=== PATIENT | female | born 1950 | race Caucasian/White ===

== ENCOUNTER 2019-09-27 07:35 | Outpatient (CLI) | payer MEDICARE, SELFPAY ==
--- NOTE | ~2019-09-27 | DEXA_ITS ---
Bone Density Report Name: Linnea Hernandez Age: 69 Sex: Female Ethnicity: White Date of : 1950 Indication: postmenopausal; Referring Provider: Axel Patton Study: Bone densitometry was performed. Exam Date: September 27, 2019 Accession number: [id number] Bone Density: Region BMD T-score Z-score Classification AP Spine (L1-L4) 0.918 -1.2 0.8 Osteopenia Femoral Neck (Left) 0.705 -1.3 0.4 Osteopenia Total Hip (Left) 0.912 -0.2 1.2 Normal Total Hip Bilateral Avg 0.906 -0.3 1.2 Normal Femoral Neck (Right) 0.776 -0.7 1.1 Normal Total Hip (Right) 0.900 -0.3 1.1 Normal World Health Organization criteria for BMD impression classify patients as: Normal (T-score at or above -1.0), Osteopenia (T-score between -1.0 and -2.5), or Osteoporosis (T-score at or below -2.5). 10-year Fracture Risk(1): Major Osteoporotic Fracture 9.3% Hip Fracture 1.1% Reported Risk Factors: [place] (), Neck BMD=0.705, BMI=27.1 (1) FRAX(R) Version 3.08. Fracture probability calculated for an untreated patient. Fracture probability may be lower if the patient has received treatment. Previous Exams: Region Exam Age BMD T-score BMD Change BMD Change Date g/cm2 vs Baseline vs Previous AP Spine(L1-L4) 09/27/2019 69 0.918 -1.2 -0.092(-9.1%)# -0.035(-3.7%)* 09/12/2017 67 0.953 -0.9 -0.057(-5.6%)# 0.006(0.6%) 05/29/2014 64 0.948 -0.9 -0.063(-6.2%)# -0.092(-8.9%)# 05/10/2011 61 1.040 -0.1 0.030(3.0%)* 0.028(2.7%)* 04/14/2009 59 1.012 -0.3 0.002(0.2%) 0.002(0.2%) 01/24/2006 56 1.010 -0.3 Total Hip(Left) 09/27/2019 69 0.912 -0.2 -0.001(-0.1%)# -0.023(-2.4%) 09/12/2017 67 0.935 -0.1 0.022(2.4%)# 0.055(6.3%)* 05/29/2014 64 0.880 -0.5 -0.033(-3.6%)# -0.015(-1.6%)# 05/10/2011 61 0.894 -0.4 -0.019(-2.0%) -0.019(-2.1%) 04/14/2009 59 0.914 -0.2 0.001(0.1%) 0.001(0.1%) 01/24/2006 56 0.913 -0.2 Total Hip(Right) 09/27/2019 69 0.900 -0.3 -0.004(-0.5%)# -0.033(-3.6%)* 09/12/2017 67 0.934 -0.1 0.029(3.2%)# 0.020(2.2%) 05/29/2014 64 0.914 -0.2 0.009(1.0%)# 0.006(0.7%)# 05/10/2011 61 0.907 -0.3 0.002(0.3%) -0.023(-2.4%) 04/14/2009 59 0.930 -0.1 0.025(2.8%) 0.025(2.8%) 01/24/2006 56 0.905 -0.3 *Denotes significance at 95% confidence level, LSC for AP Spine = 0.022 g/cm2, LSC for Total Hip = 0.027 g/cm2 Clinical Information Provided by Patient: Has used the following medications
--- NOTE | ~2019-09-27 | MM_ITS ---
EXAMINATION: MM screening [facility] BI w jason HISTORY: Screening mammogram TECHNIQUE: Craniocaudal and mediolateral oblique 3-D tomosynthesis images were obtained and synthetic 2-D images were generated. CAD analysis was submitted and interpreted. COMPARISON: 09/18/2018, 09/12/2017, 08/02/2016, 05/29/2014 BREAST PARENCHYMAL COMPOSITION: There are scattered areas of fibroglandular density. FINDINGS: There is no evidence of suspicious mass, calcification, or architectural distortion to sugg est malignancy in either breast. There has been no suspicious interval change. IMPRESSION: 1. No mammographic evidence of malignancy. 2. Recommend routine screening mammography in one year. BI-RADS Category 1: Negative Reviewed, dictated and finalized at location A. BLANKS CUT OFF SAW OPERATOR
== END 2019-09-27 07:36 | disposition home or self-care (01) ==
PROVIDERS: PCP Family Medicine; Visit Provider Physician Assistant Medical
DX: Z12.31 Encounter for screening mammogram for malignant neoplasm of breast (principal); Z78.0 Asymptomatic menopausal state; M85.88 Other specified disorders of bone density and structure, other site; M85.852 Other specified disorders of bone density and structure, left thigh
CPT/HCPCS: 77063; 77067; 77080

== ENCOUNTER 2020-08-23 08:50 | Outpatient (NON) | payer MEDICARE, SELFPAY ==
[2020-08-23 17:56] LABS: SARS-CoV-2 RNA PCR Negative
== END 2020-08-23 08:51 ==
LOC: ANHCOVIDDT 08:51
PROVIDERS: PCP Family Medicine; Visit Provider Physician Assistant Medical
DX: J02.9 Acute pharyngitis, unspecified (principal); Z20.828 Contact with and (suspected) exposure to other viral communicable diseases
CPT/HCPCS: 87635; C9803; U0003

== ENCOUNTER 2020-10-04 08:49 | Outpatient (CLI) | payer MEDICARE, SELFPAY ==
--- NOTE | ~2020-10-04 | MM_ITS ---
EXAMINATION: MM screening [facility] BI w jason HISTORY: Screening mammogram TECHNIQUE: Craniocaudal and mediolateral oblique 3-D tomosynthesis images were obtained and synthetic 2-D images were generated. CAD analysis was submitted and interpreted. COMPARISON: 09/27/2019, 09/18/2018, 09/12/2017 bilateral digital screening mammogram examinations BREAST PARENCHYMAL COMPOSITION: There are scattered areas of fibroglandular density. FINDINGS: There is no evidence of suspicious mass, calcification, or architectural distortion to sugg est malignancy in either breast. There has been no suspicious interval change. IMPRESSION: 1. No mammographic evidence of malignancy. 2. Recommend routine screening mammography in one year. BI-RADS Category 1: Negative Reviewed, dictated and finalized at location A. BLOCKER
== END 2020-10-04 08:50 | disposition home or self-care (01) ==
LOC: ANHIMG 08:53
PROVIDERS: Family Provider Family Medicine Adolescent Medicine; PCP Family Medicine; Visit Provider Physician Assistant Medical
DX: Z12.31 Encounter for screening mammogram for malignant neoplasm of breast (principal)
CPT/HCPCS: 77063; 77067

== ENCOUNTER 2021-10-30 08:12 | Outpatient (CLI) | payer MEDICARE, SELFPAY ==
--- NOTE | ~2021-10-30 | MM_ITS ---
EXAMINATION: MM screening [facility] BI w jason HISTORY: Screening TECHNIQUE: Craniocaudal and mediolateral oblique 3-D tomosynthesis images were obtained and synthetic 2-D images were generated. CAD analysis was submitted and interpreted. COMPARISON: Comparison to multiple prior studies sequentially, with oldest reviewed study dated 05/24. BREAST PARENCHYMAL COMPOSITION: There are scattered areas of fibroglandular density. FINDINGS: There is no evidence of suspicious mass, calcification, or architectural distortion to sugg est malignancy in either breast. There has been no suspicious interval change. IMPRESSION: 1. No mammographic evidence of malignancy. 2. Recommend routine screening mammography in one year. BI-RADS Category 1: Negative Reviewed, dictated and finalized at location A. ER SETUP OPERATOR
== END 2021-10-30 08:13 | disposition home or self-care (01) ==
PROVIDERS: PCP Family Medicine; Visit Provider Physician Assistant Medical
DX: Z12.31 Encounter for screening mammogram for malignant neoplasm of breast (principal)
CPT/HCPCS: 77063; 77067

== ENCOUNTER 2022-01-16 15:38 | Outpatient (CLI) | payer MEDICARE, SELFPAY ==
--- NOTE | ~2022-01-16 | DEXA_ITS ---
Bone Density Report Name: SAMSON CASTANO Age: 72 Sex: Female Ethnicity: White Date of : 1950 Indication: osteopenia; postmenopausal Referring Provider: ALMAS, MARIEL Calero Study: Bone densitometry was performed. Exam Date: January 16, 2022 Accession number: [id number] Bone Density: Region BMD T-score Z-score Classification AP Spine(L1-L4) 0.924 -1.1 1.0 Osteopenia Femoral Neck (Left) 0.731 -1.1 0.8 Osteopenia Total Hip (Left) 0.843 -0.8 0.7 Normal Femoral Neck (Right) 0.768 -0.7 1.1 Normal Total Hip (Right) 0.883 -0.5 1.1 Normal Total Hip Mean 0.863 -0.7 0.9 Normal World Health Organization criteria for BMD impression classify patients as: Normal (T-score at or above -1.0), Osteopenia (T-score between -1.0 and -2.5), or Osteoporosis (T-score at or below -2.5). 10-year Fracture Risk(1): Major Osteoporotic Fracture 9.2% Hip Fracture 1.1% Reported Risk Factors: [place] (), Neck BMD=0.731, BMI=24.5 (1) FRAX(R) Version 3.08. Fracture probability calculated for an untreated patient. Fracture probability may be lower if the patient has received treatment. Previous Exams: Region Exam Age BMD T-score BMD Change BMD Change Date g/cm2 vs Baseline vs Previous AP Spine (L1-L4) 01/16/2022 72 0.924 -1.1 -0.029 (-3.1%) 0.006 (0.6%) 09/27/2019 69 0.918 -1.2 -0.035 (-3.7%) -0.035 (-3.7%) 09/12/2017 67 0.953 -0.9 Total Hip(Left) 01/16/2022 72 0.843 -0.8 -0.092 (-9.9%) -0.069 (-7.6%) 09/27/2019 69 0.912 -0.2 -0.023 (-2.4%) -0.023 (-2.4%) 09/12/2017 67 0.935 -0.1 Total Hip(Right) 01/16/2022 72 0.883 -0.5 -0.050 (-5.4%) -0.017 (-1.9%) 09/27/2019 69 0.900 -0.3 -0.033 (-3.6%) -0.033 (-3.6%) 09/12/2017 67 0.934 -0.1 *Denotes significance at 95% confidence level, LSC for AP Spine = 0.022 g/cm2, LSC for Total Hip = 0.027 g/cm2 Clinical Information Provided by Patient: Patient maximum height was 64.5 Menopause Age: 54 Onset of menses at age 15 Number of children 4 Impression: The patient has low bone mass, based on the Total Spine T-score. The patient has an estimated ten-year risk of hip fracture of 1.1% and an estimated ten-year risk of major fracture of 9.2%, based on the WHO FRAX algorithm. The BMD for the Total Hip(Left) decreased, changing by -7.6% since the last DXA exam. Discussion: BONE DENSITY IS LOW AT ONE OR MORE SKELETAL SITES. This patient's lowest T-sco
== END 2022-01-16 15:39 | disposition home or self-care (01) ==
LOC: ANHIMG 15:39
PROVIDERS: PCP Family Medicine; Visit Provider Physician Assistant Medical
DX: Z78.0 Asymptomatic menopausal state (principal); M85.852 Other specified disorders of bone density and structure, left thigh
CPT/HCPCS: 77080

== ENCOUNTER 2022-11-14 08:38 | Outpatient (CLI) | payer MEDICARE, SELFPAY ==
--- NOTE | ~2022-11-14 | MM_ITS ---
EXAMINATION: MM screening [facility] BI w jason HISTORY: Screening TECHNIQUE: Craniocaudal and mediolateral oblique 3-D tomosynthesis images were obtained and synthetic 2-D images were generated. CAD analysis was submitted and interpreted. COMPARISON: Comparison to multiple prior studies sequentially, with oldest reviewed study dated 07/24. BREAST PARENCHYMAL COMPOSITION: There are scattered areas of fibroglandular density. FINDINGS: There is no evidence of suspicious mass, calcification, or architectural distortion to sugg est malignancy in either breast. There has been no suspicious interval change. IMPRESSION: 1. No mammographic evidence of malignancy. 2. Recommend routine screening mammography in one year. BI-RADS Category 1: Negative Reviewed, dictated and finalized at location A.
== END 2022-11-14 08:39 | disposition home or self-care (01) ==
PROVIDERS: PCP Family Medicine; Visit Provider Physician Assistant
DX: Z12.31 Encounter for screening mammogram for malignant neoplasm of breast (principal)
CPT/HCPCS: 77063; 77067

== ENCOUNTER 2023-08-21 09:00 | Emergency (ER) | payer MEDICARE, SELFPAY ==
--- NOTE | ~2023-08-21 | XR_ITS ---
EXAMINATION: XR chest 2V DATE: 08/21/2023 09:59 INDICATION: Cough. COVID-19. TECHNIQUE: Frontal and lateral views of the chest were obtained. COMPARISON: None. FINDINGS: There is mild scarring at the lung apices. No pleural effusion or pneumothorax. The heart s ize is normal. IMPRESSION: 1. Mild scarring at the lung apices. Reviewed, dictated and finalized at location A. G ADDRESS CLERK
[2023-08-21 09:10] VITALS: BP 120/53; PULSE 85; RESP 16; TEMP 37.2; O2SAT 97
--- NOTE | 2023-08-21 09:35 | ED.URI ---
HPI - URI/Sore Throat General Chief Complaint: Upper Respiratory Infection Stated Complaint: Sinus Infection symptoms Time Seen by Provider: 08/21/23 09:35 Source: patient, RN notes reviewed and old records reviewed Mode of arrival: ambulatory Limitations: no limitations History of Present Illness HPI Narrative: 73-year-old female presents to the [facility] with complaints sinus congestion, pain and pressure. Symptoms started 9-10 days ago Tested positive for COVID-19 on August 12, prescribed Paxlovid and still not better Related Data Home Medications Medication Instructions Recorded Confirmed calcium carbonate 600 mg calcium 600 mg PO DAILY 09/13/19 08/21/23 (1,500 mg) tablet (Calcium) Allergies Allergy/AdvReac Type Severity Reaction Status Date / Time No Known Allergies Allergy Unknown Verified 08/21/23 09:13 Review of Systems Review of Systems: All systems reviewed & are unremarkable except as noted in HPI and below Constitutional: Constitutional: Reports no additional constitutional complaints Eyes: Eyes: Reports no additional eye complaints ENT: Reports as per HPI and Reports sinus pressure Cardiovascular: Cardiovascular: Reports no additional cardiovascular complaints, Denies chest pain and Denies dyspnea Respiratory: Respiratory: Reports no additional respiratory complaints, Denies chest congestion, Denies cough and Denies dyspnea Gastrointestinal: Gastrointestinal: Reports no additional gastrointestinal complaints, Denies abdominal pain, Denies nausea and Denies vomiting Musculoskeletal: Musculoskeletal: Reports no additional musculoskeletal complaints Integumentary/Breasts: Skin/Breast: Reports system reviewed and no additional complaints, except as docu Neurologic: Reports system reviewed and no additional complaints, except as documented Psychiatric: Psychiatric: Reports no additional psychiatric complaints Allergic/Immunologic: Allergic/Immunologic: Reports no additional allergic/immunologic complaints [facility] Past Medical History Medical History History of chicken pox History of measles History of mumps Vitamin D deficiency Surgical History Surgical History History of appendectomy (~2011) Family History Family History Mother , age 96 Family history of mental disorder, Onset Age: 95 Hypertension Heart disease Father , age 94 Hypertension, Onset Age: 94 Sibling Hypertension Son Thyroid dysfunction Grandparent , age 95 Enlarged heart Social History Social History Smoking status: Never smoker Alcohol intake: current Substance use: never Lack of Transportation: No Lack of Food: Never True Current Housing: I Have Housing Concerned About Future Housing: No Difficulty Paying Gas/Electric Bills: No Difficulty Paying for Meds: No Currently Unemployed: No Education: Trade/Vocational Certificate Difficulty w/ Childcare or Family Care: No Comments At the time of my signature, I reviewed and agree with the nursing past medical, surgical, social, and family history. There is no relevant family history pertinent to the patient complaint. Exam Const: General: cooperative, healthy appearing, comfortable, no acute distress, well developed, alert and well nourished Nutritional Appearance: well nourished Orientation/consciousness: patient oriented x3 Limitations: no limitations HENMT: Head: normal to inspection Ears: hearing grossly normal bilaterally, external ears normal, TM's normal bilaterally, EAC's normal, mastoids normal and no periauricular adenopathy Face/Nose/Sinus: Normal external nose present, Normal nares present, Normal nasal mucous membranes and turbinates present, Nasal discharge present cl
== END 2023-08-21 10:12 | disposition home or self-care (01) ==
PROVIDERS: Emergency Provider Nurse Practitioner; PCP Family Medicine
DX: J32.9 Chronic sinusitis, unspecified (principal); J40 Bronchitis, not specified as acute or chronic; U09.9 Post COVID-19 condition, unspecified
CPT/HCPCS: 71046; 99213; G0463

== ENCOUNTER 2023-12-09 08:01 | Outpatient (CLI) | payer MEDICARE, SELFPAY ==
--- NOTE | ~2023-12-09 | MM_ITS ---
EXAMINATION: MM screening [facility] BI w jason HISTORY: Screening TECHNIQUE: Craniocaudal and mediolateral oblique 3-D tomosynthesis images were obtained and synthetic 2-D images were generated. CAD analysis was submitted and interpreted. COMPARISON: Comparison to multiple prior studies sequentially, with oldest reviewed study dated 10/04. BREAST PARENCHYMAL COMPOSITION: Not dense: There are scattered areas of fibroglandular density. FINDINGS: There are developing nodular asymmetries centered in the upper outer quadrant of the right breast. The left breast is stable without evidence for malignancy. IMPRESSION: 1. Developing nodular asymmetries of the right breast. 2. Additional mammographic views and possible breast ultrasound are recommended. BI-RADS Category 0: Incomplete: Needs additional imaging evaluation. Reviewed, dictated and finalized at location B. IMPRESSION: 1. Developing nodular asymmetries of the right breast. 2. Additional mammographic views and possible breast ultrasound are recommended . BI-RADS Category 0: Incomplete: Needs additional imaging evaluation.
== END 2023-12-09 08:02 | disposition home or self-care (01) ==
LOC: ANHIMG 08:02
PROVIDERS: PCP Family Medicine; Visit Provider Nurse Practitioner Family
DX: Z12.31 Encounter for screening mammogram for malignant neoplasm of breast (principal); R92.8 Other abnormal and inconclusive findings on diagnostic imaging of breast
CPT/HCPCS: 77063; 77067

== ENCOUNTER 2024-01-08 10:39 | Outpatient (CLI) | payer MEDICARE, SELFPAY ==
--- NOTE | ~2024-01-08 | MMUS_ITS ---
EXAMINATION: MM diagnostic [facility] RT w jason, US breast RT complete HISTORY: Developing nodular asymmetries of right breast reported on December 09, 2023 screening mammogra m TECHNIQUE: Additional 3-D tomosynthesis images of the right breast were performed and synthetic 2-D i mages were generated. CAD analysis was submitted and interpreted. High resolution complete right [address] st ultrasound examination including all 4 quadrants and subareolar area was performed. COMPARISON: December 09, 2023 bilateral screening mammogram November 14, 2022, October 30, 2021 bilateral screening mammogram examinations FINDINGS: MAMMOGRAPHIC FINDINGS: No suspicious mass or architectural distortion, malignant calcification, skin thickening or retractio n or significant new or developing density is detected. ULTRASOUND: No suspicious mass or shadowing, cyst or other Henry sonographic abnormalities detected. IMPRESSION: 1. No evidence of malignancy 2. Routine annual mammographic screening is recommended BI-RADS Category 1: Negative Reviewed, dictated and finalized at location B. IMPRESSION: 1. No evidence of malignancy 2. Routine annual mammographic screening is recommended BI-RADS Category 1: Negative
== END 2024-01-08 10:40 | disposition home or self-care (01) ==
PROVIDERS: PCP Family Medicine; Visit Provider Family Medicine
DX: R92.8 Other abnormal and inconclusive findings on diagnostic imaging of breast (principal)
CPT/HCPCS: 76641; 77061; 77065; G0279

== ENCOUNTER 2025-02-07 08:47 | Outpatient (CLI) | payer MEDICARE, SELFPAY ==
--- NOTE | ~2025-02-07 | MM_ITS ---
EXAMINATION: MM screening [facility] BI w jason HISTORY: Screening TECHNIQUE: Craniocaudal and mediolateral oblique 3-D tomosynthesis images were obtained and synthetic 2-D images were generated. CAD analysis was submitted and interpreted. COMPARISON: Comparison to multiple prior studies sequentially, with oldest reviewed study dated 11/2019. BREAST PARENCHYMAL COMPOSITION: There are scattered areas of fibroglandular density. FINDINGS: There is no evidence of suspicious mass, calcification, or architectural distortion to sugg est malignancy in either breast. There has been no suspicious interval change. IMPRESSION: 1. No mammographic evidence of malignancy. 2. Recommend routine screening mammography in one year. BI-RADS Category 1: Negative Reviewed, dictated and finalized at location A.
--- OUTSIDE RECORDS SUMMARY | 2025-02-07 09:12 | XMS_ITS | Referral Summary ---
Author Organization [facility] Address [address] [place] [address] Care Team Providers Care Cocktail Server Name Role Phone Bee Ferrell MD Primary Care Provider + Allergies No known active allergies Medications ergocalciferol (VITAMIN D) 50,000 unit capsule TAKE 1 CAPSULE BY MOUTH WEEKLY 4 Active doxycycline hyclate (VIBRAMYCIN) 50 mg capsule TAKE 1 CAPSULE BY MOUTH TWICE DAILY WITH FOOD 4 Active vit C,O-Ua-jyihw-lou tein-zeaxan 250-90-40-1 mg capsule Take by mouth Active calcium carbonate-vitam in D3 2,500 mg (1,000 mg elemental)-800 unit tablet Take by mouth Acti ve erythromycin (ILOTYCIN) ophthalmic ointment Apply to right eye 3 (three) times a day Discontinue when irritation resolves 3.5 g 3 4 Active Active Problems No known active problems Social History Tobacco Use Types Packs/Day Years Used Date Smoking Tobacco: Former Smokeless Tobacco: Never Tobacco Cessation:Counseling Given: No Comments Unknown Sex and Gender Information Value Date Recorded Sex Assigned at Not on file 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
--- OUTSIDE RECORDS SUMMARY | 2025-02-07 09:12 | XMS_ITS | Clinical Summary ---
Author Organization [facility] Address [address] [place] [address] Care Team Providers Care Oracle Applications Developer Name Role Phone Bee Ferrell MD Primary Care Provider + Allergies No known active allergies Medications ergocalciferol (VITAMIN D) 50,000 unit capsule TAKE 1 CAPSULE BY MOUTH WEEKLY 4 Active doxycycline hyclate (VIBRAMYCIN) 50 mg capsule TAKE 1 CAPSULE BY MOUTH TWICE DAILY WITH FOOD 4 Active vit C,F-Rw-joahu-lou tein-zeaxan 250-90-40-1 mg capsule Take by mouth Active calcium carbonate-vitam in D3 2,500 mg (1,000 mg elemental)-800 unit tablet Take by mouth Acti ve erythromycin (ILOTYCIN) ophthalmic ointment Apply to right eye 3 (three) times a day Discontinue when irritation resolves 3.5 g 3 4 Active Active Problems No known active problems Surgical History Surgery Date Site/Laterality Comments APPENDECTOMY Medical History Medical History Date Comments Macular degeneration Family History Medical History Relation Name Comments Glaucoma Maternal Grandmother Macular degeneration Maternal Grandmother Diabetes Neg Hx Thyroid disease Neg Hx Relation Name Status Comments Maternal Grandmother Social History Tobacco Use Types Packs/Day Years Used Date Smoking Tobacco: Former Smokeless Tobacco: Never Tobacco Cessation:Counseling Given: No Comments Unknown Sex and Gender Information Value Date Recorded Sex Assigned at Not on file 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 Gender Identity Not on file Sexual Orientation Not on file Obstetrics History Plan of Treatment Health Maintenance Due Date Last Done Comments Breast Cancer Screening-Mammogram 1950 Colon Cancer Screening-Colonoscopy 1950 Depression Screening 1950 Fall Risk Assessment 1950 Hepatitis C Screening 1950 Osteoporosis Screening-Bone Density Scan 1950 DTaP/Tdap/Td Vaccine (1 - Tdap) 1962 Hepatitis B Screening 1969 Well Visit 65+ 01/12/2016 Covid-19 Vaccine (5 - 2023-2 5 season) 2024 08/06/2022, 07/20/2021, 10/15/2020, Additional history exists Pneumococcal vaccine 65+ Completed 04/23/2021, 08/25 Zoster Vaccine Completed 01/13/2022, 11/08/2021 Influenza Vaccine Completed 06/15/2024, , 06/13/2022, Additional history exists Insurance [facility] MEDICARE Care Teams Oracle Applications Developer Relationship Specialty Start Date End Date Bee Ferrell MD [facility] [facility] [address] [place] [address] PCP - General Family Medicine 07/04/24
== END 2025-02-07 08:48 | disposition home or self-care (01) ==
PROVIDERS: PCP Family Medicine; Visit Provider Student in an Organized Health Care Education/Training Program
DX: Z12.31 Encounter for screening mammogram for malignant neoplasm of breast (principal)
CPT/HCPCS: 77063; 77067

== ENCOUNTER 2025-03-09 09:01 | Outpatient (CLI) | payer MEDICARE, SELFPAY ==
--- NOTE | ~2025-03-09 | DEXA_ITS ---
Bone Density Report Name: SAMSON CASTANO Age: 75 Sex: Female Ethnicity: White Date of : 1950 Indication: postmenopausal; screening for osteoporosis; Referring Provider: ALENA MILLER Study: Bone densitometry was performed. Exam Date: March 09, 2025 Accession number: [id number] Bone Density: Region BMD T-score Z-score Classification AP Spine(L1-L4) 0.924 -1.1 1.2 Osteopenia Femoral Neck (Left) 0.736 -1.0 1.0 Normal Total Hip (Left) 0.868 -0.6 1.1 Normal Femoral Neck (Right) 0.772 -0.7 1.3 Normal Total Hip (Right) 0.867 -0.6 1.1 Normal Total Hip Mean 0.868 -0.6 1.1 Normal World Health Organization criteria for BMD impression classify patients as: Normal (T-score at or above -1.0), Osteopenia (T-score between -1.0 and -2.5), or Osteoporosis (T-score at or below -2.5). 10-year Fracture Risk(1): Major Osteoporotic Fracture 9.7% Hip Fracture 1.4% Reported Risk Factors: [place] (), Neck BMD=0.736, BMI=25.7 (1) FRAX(R) Version 3.08. Fracture probability calculated for an untreated patient. Fracture probability may be lower if the patient has received treatment. Clinical Information Provided by Patient: Has used the following medications: Vitamin D, Calcium Patient maximum height was 64.5 Menopause Age: 54 No regular weight bearing exercise Onset of menses at age 15 Number of children 4 Impression: The patient has low bone mass, based on the Total Spine T-score. The patient has an estimated ten-year risk of hip fracture of 1.4% and an estimated ten-year risk of major fracture of 9.7%, based on the WHO FRAX algorithm. Discussion: BONE DENSITY IS LOW AT ONE OR MORE SKELETAL SITES. This patient's lowest T-score is low at one or more skeletal sites. It meets the World Health Organization's (WHO) criteria for ?low bone mass? (T-score between -1.0 and -2.5). The patient's 10-year risk of fracture as calculated by FRAX is less than the threshold where pharmacological therapy is recommended by the National Osteoporosis Foundation (NOF). However, all treatment decisions require clinical judgment and consideration of individual patient factors, including patient preferences, comorbidities, previous drug use, risk factors not captured in the FRAX model (e.g., frailty, falls, vitamin D deficiency, increased bone turnover, interval significant decline in bone density) and possible under or overestimation of fracture risk by FRAX. The patient should follow a healthful lifestyle (good nutrition with adequate calcium and vitamin D, and appropriate weight-bearing exercise). Follow-Up: Consider repeating this study in 2 to 3 years to reassess this patient's status, or sooner if there is some new clinical indication. Reported by: TISH on 03/09/2025 9:44:00 AM. Reviewed, dictated and finalized at location A.
--- OUTSIDE RECORDS SUMMARY | 2025-03-09 09:05 | XMS_ITS | Clinical Summary ---
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
--- OUTSIDE RECORDS SUMMARY | 2025-03-09 09:05 | XMS_ITS | Referral Summary ---
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
== END 2025-03-09 09:02 | disposition home or self-care (01) ==
LOC: ANHIMG 09:02
PROVIDERS: PCP Family Medicine; Visit Provider Student in an Organized Health Care Education/Training Program
DX: M85.88 Other specified disorders of bone density and structure, other site (principal); Z78.0 Asymptomatic menopausal state
CPT/HCPCS: 77080